=== PATIENT | female | born 1970 ===

== ENCOUNTER 2019-03-05 06:57 | Outpatient (CLI) | payer OTHER ==
--- NOTE | 2019-03-05 08:35 | MMO ---
Bilateral MAMMO Bilat Screen [facility]. CLINICAL HISTORY: Patient is 48 years old and is seen for screening. The patient has no family history of breast cancer. The patient has no personal history of cancer. VIEWS: The views performed were: bilateral craniocaudal with tomosynthesis and bilateral mediolateral oblique with tomosynthesis. This study has been interpreted with the assistance of computer-aided detection. MAMMOGRAM FINDINGS: There are scattered fibroglandular densities. There are no suspicious masses, suspicious calcifications, or new areas of architectural distortion. IMPRESSION: THERE IS NO MAMMOGRAPHIC EVIDENCE OF MALIGNANCY. A ROUTINE FOLLOW-UP MAMMOGRAM IN 1 YEAR IS RECOMMENDED. THE RESULTS OF THIS EXAM WERE SENT TO THE PATIENT. ACR BI-RADS Category 1 - Negative MAMMOGRAPHY NOTE: 1. A negative mammogram report should not delay a biopsy if a dominant of clinically suspicious mass is present. 2. Approximately 10% to 15% of breast cancers are not detected by mammography. 3. Adenosis and dense breasts may obscure an underlying neoplasm. Reported by: HOMA BLACK MD Electonically Signed: [id number]
--- NOTE | 2019-03-05 09:35 | ULT ---
PELVIC ULTRASOUND: DATE: 03/04/2019. COMPARISON: None. HISTORY: Abnormal uterine bleeding. TECHNIQUE: Multiplanar robles scale sonographic imaging of the pelvis obtained with transabdominal and endovaginal imaging. The ovaries are assessed with color flow and spectral analysis. FINDINGS: There is no significant free fluid in the pelvis. The uterus measures 7.2 x 5.0 x 4.5 cm. The uterus is retroverted. Endometrial stripe thickness is approximately 7 mm, within normal limits. There is a tiny hypoechoic area measuring 6 x 4 x 8 mm within the superior aspect of the endometrial region which may signify a small endometrial cystic structure or could represent small volume fluid w ithin the endometrial canal. The right ovary measures 1.7 x 1.4 x 1.1 cm and the left ovary measures 2.1 x 2.1 x 1.0 cm. Both ova brandin demonstrate normal blood flow. There is a small cyst versus dominant follicle within the left ovary measuring 1.2 x 0.9 x 1.3 cm. Two questionable small uterine fibroids are noted, one in the anterior aspect of the uterus measuring 1.0 x 0.7 x 0.9 cm and one in the posterior aspect of the uterus measuring 1.5 x 1.8 x 2.0 cm. IMPRESSION: No acute findings are seen. Incidental findings as documented above. POS: OFF
== END 2019-03-05 06:58 | disposition home or self-care (01) ==
LOC: BICULT 06:57
PROVIDERS: ATTEND Obstetrics & Gynecology
DX: Z12.31 Encounter for screening mammogram for malignant neoplasm of breast (principal); N93.9 Abnormal uterine and vaginal bleeding, unspecified; K92.1 Melena
CPT/HCPCS: 76856; 77063; 77067